=== PATIENT | female | born 1945 | race Two or more races ===

== ENCOUNTER 2017-08-21 12:17 | Outpatient (CLI) | payer OTHER | END 2017-08-21 12:24 | disposition home or self-care (01) | LOC: NUCLEAR 12:17 | DX: D49.1 Neoplasm of unspecified behavior of respiratory system (principal); R06.00 Dyspnea, unspecified; I26.99 Other pulmonary embolism without acute cor pulmonale ==

== ENCOUNTER → 2018-07-03 | Outpatient (CLI) | payer OTHER | END | disposition home or self-care (01) | LOC: RAD 501 09:22 | DX: N30.00 Acute cystitis without hematuria (principal) ==

== ENCOUNTER 2018-08-21 10:13 | Outpatient (CLI) | payer OTHER | END 2018-08-21 10:34 | disposition home or self-care (01) | LOC: NUCLEAR 10:13 | DX: I11.9 Hypertensive heart disease without heart failure (principal); I50.32 Chronic diastolic (congestive) heart failure ==

== ENCOUNTER 2018-09-05 09:46 | Outpatient (CLI) | payer OTHER | END 2018-09-05 12:28 | disposition home or self-care (01) | LOC: RAD 501 09:46 | DX: M12.9 Arthropathy, unspecified (principal); M19.90 Unspecified osteoarthritis, unspecified site ==

== ENCOUNTER 2018-10-15 13:51 | Outpatient (CLI) | payer OTHER | END 2018-10-15 13:59 | disposition home or self-care (01) | LOC: RAD 501 13:51 | DX: R07.89 Other chest pain (principal) ==

== ENCOUNTER 2018-12-31 12:10 | Outpatient (CLI) | payer OTHER | END 2018-12-31 16:42 | disposition home or self-care (01) | LOC: LAB 12:10 | DX: N30.00 Acute cystitis without hematuria (principal) ==

== ENCOUNTER 2022-12-04 10:34 | Outpatient (CLI) | payer OTHER | END 2022-12-04 10:36 | disposition home or self-care (01) | LOC: NUCLEAR 10:34 | PROVIDERS: ATTEND Physical Medicine & Rehabilitation | DX: I87.2 Venous insufficiency (chronic) (peripheral) (principal) ==

== ENCOUNTER → 2022-12-05 | Outpatient (CLI) | payer OTHER | END | disposition home or self-care (01) | LOC: NUCLEAR 10:40 | PROVIDERS: ATTEND Physical Medicine & Rehabilitation | DX: I73.9 Peripheral vascular disease, unspecified (principal) ==